=== PATIENT | male | born 1945 | race Caucasian/White ===

== ENCOUNTER 2017-09-04 15:42 | Emergency (ER) | payer BC, MEDICARE ==
[~2017-09-04 15:42] MED LIST: Iopamidol 370 76% 100 ML VIAL ONE
[2017-09-04] MEDS ORDERED: Sodium Chloride 0.9% 1,000 ML BAG ONE (16:00)
[2017-09-04 16:24] LABS: INR-International Normal Ratio 1.1; PTT 35.1 SEC (22.9-36.1); Prothrombin Time 14.3 SEC (12.0-14.7)
[2017-09-04 16:26] LABS: D-Dimer Test 3.99 *mcg/mL (0.27-0.43)
--- NOTE | 2017-09-04 16:27 | RAD ---
FRONTAL VIEW CHEST: INDICATION: Dyspnea. No prior comparison. FINDINGS: The lungs are hyperinflated. Positioning of the patient limits assessment. There is blunting of the right lateral costophrenic sulcus. Cardiomediastinal silhouette is accentuated. IMPRESSION: 1. Limited evaluation due to patient positioning. 2. The lungs are hyperinflated and there is blunting at the inferior right hemithorax. Consider fol lowup with well-positioned 2-view chest series to further evaluate. POS: [facility]
[2017-09-04] MEDS ORDERED: Lidocaine 2% Jelly 5 ML TUBE ONE ×2 (16:28→16:30)
[2017-09-04] MEDS ORDERED: Lidocaine Viscous Sol 2% 15 ml UD Cup ONE ×2 (16:30→16:34)
[2017-09-04 16:38] LABS: ALT (SGPT) 10 U/L (8-55); AST (SGOT) 21 U/L (5-34); Albumin 3.3 g/dL (3.4-4.8); Alkaline Phosphatase 48 U/L (40-150); Anion Gap 15 mmol/L (10-20); BUN (Urea Nitrogen) 15 mg/dL (8.4-25.7); Bilirubin, Total 0.9 mg/dL (0.2-1.2); Calc. Creatinine Clearance 0 mL/min (70-130); Calcium 8.7 mg/dL (7.8-10.44); Carbon Dioxide 32 mmol/L (23-31); Chloride 97 mmol/L (98-107); Estimated GFR-MDRD Greater than 90; Globulin 3.9 g/dL (2.4-3.5); Glucose 106 mg/dL (83-110); Lipase 6 U/L (8-78); Potassium 4.4 mmol/L (3.5-5.1); Protein, Total 7.2 g/dL (5.8-8.1); Sodium 140 mmol/L (136-145)
[2017-09-04 16:39] LABS: CKMB 1.4 ng/mL (0-6.6); Troponin I Less than 0.010 ng/mL (< 0.028)
[2017-09-04 16:41] LABS: Eosinophils 1 % (0-10); Hemoglobin 15.5 g/dL (14.0-18.0); Lymphocytes 22 % (21-51); MDiff Complete? YES; Mean Corpuscular HGB CONC 31.1 g/dL (32.0-36.0); Mean Corpuscular Hemoglobin 33.3 pg (27.0-31.0); Mean Corpuscular Volume 106.9 fL (78.0-98.0); Mean Platelet Volume 9.7 fL (7.4-10.4); Monocytes 3 % (0-10); Neutrophil 74 % (42-75); PLT Morphology Comment PLATELETS DECREASED ON SLIDE; Platelet Count 67 thou/uL (130-400); RBC Distribution Width 14.8 % (11.5-14.5); Red Blood Cell (RBC) Count 4.66 mill/uL (4.70-6.10); White Blood Cell (WBC) Count 4.1 thou/uL (4.8-10.8)
[2017-09-04] MEDS ORDERED: Piperacillin/Tazobactam 3.375 GM VIAL ONE (16:58)
[2017-09-04 17:16] LABS: Bilirubin Small (Negative); Blood, Urine Moderate (Negative); Clarity Clear (Clear); Glucose, Urine (Dipstick) Negative (Negative); Leukocyte Negative (Negative); Nitrite Negative (Negative); Protein, Urine (Dipstick) 30 mg/dL (Neg-Trace); Specific Gravity, Urine 1.025 (1.005-1.030); Urobilinogen 0.2 mg/dL (0.2-1.0); pH, Urine 5.5 (5.0-9.0)
[2017-09-04 17:18] LABS: Bacteria/HPF None Seen HPF (None Seen); Squamous Epithelial 0-3 HPF (0-3); WBC/HPF 0-3 HPF (0-3)
[2017-09-04] MEDS ORDERED: methylPREDNISolone Sod Succ/PF 125 MG/2 ML VIAL ONE (19:03)
--- NOTE | 2017-09-04 19:03 | CT ---
CT ANGIOGRAM CHEST WITH CONTRAST: HISTORY: Dyspnea. Elevated D-dimer. Weakness. COMPARISON: Chest radiograph from the same day. TECHNIQUE: CT angiogram chest, performed after the intravenous administration of contrast, with 3D rendering pro vided. FINDINGS: The pulmonary trunk is dilated, measuring up to 33 mm. The distal pulmonary arteries are also dilate d. This suggests pulmonary arterial hypertension. No proximal or segmental pulmonary arterial filli ng defect. No pericardial effusion. Heart size is normal. No adenopathy of the chest. Severe emphysematous changes. There is plaque-like scarring in the upper lobes. Multiple pulmonary blebs are present in the lung bases, as well as bullae. No focal air space consolidation. There is mass-like scarring in the left lower lobe, abutting the p leura, with some mild atelectasis. There is mucus throughout the distal trachea, as well as the right and left mainstem bronchi. There is wall thickening of the bronchi bilaterally, suggesting chronic bronchitis. The patient is kyphotic with height loss of multiple vertebral bodies, although there does not appear to be an acute compression deformity. No acute displaced rib fracture, although there is motion art ifact limiting this evaluation. IMPRESSION: 1. Severe lung emphysema with some mass like scarring in the left lower lobe. Followup in three to six months is recommended. 2. Pulmonary artery hypertension. 3. No proximal or segmental pulmonary arterial filling defect. 4. Chronic bronchitis. 5. Mucus throughout the distal trachea, as well as the right and left mainstem bronchi, suggesting c hronic aspiration. POS: [facility]
[2017-09-04] MEDS ORDERED: Sterile Water 10 ML ONE (19:04)
--- NOTE | 2017-09-04 19:09 | CT ---
CT ABDOMEN AND PELVIS WITH CONTRAST: HISTORY: Weakness. Fall. COMPARISON: None. FINDINGS: Multiple chronic compression deformities at the thoracolumbar junction. No acute compression fractur e is appreciated. 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 The superior and inferior pubic rami are intact. The SI joints are intact. The sacral ala are intac t. The ilium are intact. The femoral heads and necks are intact. There is a wavy appearance of both iliac wings, suggesting old fracture, without acute displaced frac ture being appreciated, given the lack of adjacent hematoma. The spleen is unremarkable. The liver is unremarkable. The gallbladder is distended. the aortoiliac contour is nonaneurysmal. There is mild third spacing of fluid. A Diamond catheter is in place. Contrast is seen within the renal collecting systems and ureters. No hydronephrosis. The pancreas is unremarkable. Mild prominence of the common bile duct, although within normal size l imits for age. No free intraperitoneal gas or fluid. IMPRESSION: 1. No acute inflammatory process in the abdomen or pelvis. 2. Demineralization of the bones with multiple compression deformities, as well as an old right matt c wing fracture. 3. Mild third spacing of fluid, suggesting low grade anasarca. POS: [facility]
== END 2017-09-04 20:15 | disposition short-term general hospital (02) ==
LOC: MADERS 15:42
DX: A41.9 Sepsis, unspecified organism (principal); J44.1 Chronic obstructive pulmonary disease with (acute) exacerbation; R09.02 Hypoxemia; E05.90 Thyrotoxicosis, unspecified without thyrotoxic crisis or storm; F17.210 Nicotine dependence, cigarettes, uncomplicated
CPT/HCPCS: 36415; 71045; 71275; 74177; 80053; 81003; 81015; 82553; 83605; 83690; 83880; 84443; 84484; 85025; 85379; 85610; 85730; 87040; 93005; 94760; 96361; 96365; 96375; A4216; J2543; J2930; J7050; J7620